=== PATIENT | male | born 1990 | race Caucasian/White ===

== ENCOUNTER 2016-08-04 23:00 | Emergency (ER) | payer SELFPAY ==
[~2016-08-04] VITALS: Ht 180.3 cm; Wt 68.0 kg
[~2016-08-04 23:00] MED LIST: CEPH-264 PO; IBUP600T16 PO; LEVE500T56 PO; TRAM-48 PO
[2016-08-04 23:15] VITALS: BP 114/69
[2016-08-04] MEDS ORDERED: AMOX500C PO (23:39)
[2016-08-04] MEDS ORDERED: TRAM-48 PO (23:39)
[2016-08-04] MEDS ORDERED: IBUP600T16 PO (23:39)
--- NOTE | 2016-08-04 23:39 | PHYS DOC ---
Past History Past Medical History: Seizure Past Surgical History: No Surgical History Alcohol Use: None Drug Use: None Adult General Chief Complaint Chief Complaint: DENTAL PROBLEM HPI HPI Patient is a 26-year-old male who presents here today complaining of couple days worth of right upper molar pain. Patient reports he does not have a dentist. Patient denies any other symptomatology. Patient has any fevers. Patient has any vomiting or diarrhea. Patient denies any recent trauma to his jaw. Patient is allergic to any medications. Patient does not have any history of hypertension diabetes liver longer kidney problems. Patient's physical exam is remarkable for tenderness to palpation to his right upper molars. There is no fluctuance. No trismus. No abscess formation. Assessment and plan #1 dental pain was likely secondary to wisdom teeth coming in. Patient is tenderness palpation over his right posterior molars. There is no fluctuance. There is no erythema around his gumline. There may be early infection. I discussed with the patient that he will need to follow-up with a dentist for definitive management of this pain. In the meantime we will transfer him amoxicillin, ibuprofen, and Ultram in order to assist him with his discomfort. Review of Systems Review of Systems Constitutional: Denies fever or chills [] Eyes: Denies change in visual acuity, redness, or eye pain [] All other review systems are negative except as documented in the history of present illness portion. Allergies Allergies Allergies Coded Allergies Type Severity Reaction Last Updated Verified No Known Drug Allergies 12/26/15 No Physical Exam Physical Exam Constitutional: Well developed, well nourished, no acute distress, non-toxic appearance. [] HENT: Normocephalic, atraumatic, bilateral external ears normal, oropharynx moist, no oral exudates, nose normal. [] Eyes: PERRLA, EOMI, conjunctiva normal, no discharge. [] Neck: Normal range of motion, no tenderness, supple, no stridor. [] Cardiovascular:Heart rate regular rhythm, no murmur [] Lungs & Thorax: Bilateral breath sounds clear to auscultation [] Abdomen: Bowel sounds normal, soft, no tenderness, no masses, no pulsatile masses. [] Skin: Warm, dry, no erythema, no rash. [] Back: No tenderness, no CVA tenderness. [] Extremities: No tenderness, no cyanosis, no clubbing, ROM intact, no edema. [] Neurologic: Alert and oriented X 3, normal motor function, normal sensory function, no focal deficits noted. [] Psychologic: Affect normal, judgement normal, mood normal. [] EKG EKG [] Radiology/Procedures Radiology/Procedures [] Course & Med Decision Making Course & Med Decision Making Pertinent Labs and Imaging studies reviewed. (See chart for details) [] Dragon Disclaimer Dragon Disclaimer This chart was dictated in whole or in part using Voice Recognition software in a busy, high-work load, and often noisy Emergency Department environment. It may contain unintended and wholly unrecognized errors or omissions. Departure Departure: Impression: Primary Impression: Toothache Disposition: HOME, SELF-CARE Condition: IMPROVED Referrals: JENY GUARDADO MD (PCP) Patient Instructions: Toothache-Brief Scripts Tramadol Hcl (ULTRAM) 50 Mg Tablet 50 MG PO PRN Q6HRS Y for PAIN, #20 TAB Prov: ISAAC BEARD MD 08/04/16 Ibuprofen (IBUPROFEN) 600 Mg Tablet 600 MG PO QID Y for PAIN, #20 Prov: ISAAC BEARD MD 08/04/16 Amoxicillin (AMOXICILLIN) 500 Mg Capsule 1 CAP PO TID, #30 CAP Prov: ISAAC BEARD MD 08/04/16 ISAAC BEARD MD August 04, 2016 23:39
[2016-08-05] MEDS ORDERED: AMOXICILLIN 500 MG CAPSULE PO ONE
[2016-08-05] MEDS ORDERED: traMADol 50 MG TABLET PO ONE
[2016-08-05] MEDS ORDERED: IBUPROFEN 600 MG TABLET. PO ONE
== END 2016-08-05 | disposition home or self-care (01) ==
LOC: ER 23:00
DX: K08.89 Other specified disorders of teeth and supporting structures (principal)
CPT/HCPCS: 99284

== ENCOUNTER 2016-08-14 23:54 | Emergency (ER) | payer SELFPAY ==
[~2016-08-14] VITALS: Ht 180.3 cm; Wt 68.0 kg
[~2016-08-14 23:54] MED LIST changes: +AMOX500C PO
[2016-08-14 23:55] VITALS: BP 127/74
--- NOTE | 2016-08-14 23:57 | ED.ADGEN ---
Past History Past Medical History: No Pertinent History Past Surgical History: No Surgical History Alcohol Use: None Drug Use: None Incision and Drainage Indication: Abscess on right thigh Procedure: The patient was positioned appropriately and the skin over the incision site was clean with alcohol swab. Local anesthesia was 2 mL of buffered lidocaine was injected. An incision was then made over the center of the wound and mall amount of material was expressed. The patients tetanus status was up-to-date. The patient tolerated the procedure well. Complications: No complications noted Adult General Chief Complaint Chief Complaint Insect bite HPI HPI Patient is a 26 year old male who presents with wound on his right thigh. He states his been there for 2 days. He states it's painful that's why came minute midnight to be seen and evaluated. He denies any fevers chills nausea vomiting. He states his last tetanus shot was in the last 5 years. He denies any hematuria or other bleeding disorders. Review of Systems Review of Systems Constitutional: Denies fever or chills [] Eyes: Denies change in visual acuity, redness, or eye pain [] HENT: Denies nasal congestion or sore throat [] Respiratory: Denies cough or shortness of breath [] Cardiovascular: No additional information not addressed in HPI [] GI: Denies abdominal pain, nausea, vomiting, bloody stools or diarrhea [] : Denies dysuria or hematuria [] Musculoskeletal: Denies back pain or joint pain [] Integument: Positive for lesion on the right thigh Neurologic: Denies headache, focal weakness or sensory changes [] Endocrine: Denies polyuria or polydipsia [] Current Medications Current Medications Current Medications Medications (Trade) Dose Ordered Sig/[facility] Start Time Stop Time Status Last Admin Dose Admin Lidocaine/Sodium Bicarbonate (Buffered Lidocaine 1%) 3 ml 1X ONCE 08/15/16 00:15 08/15/16 00:16 DC 08/15/16 00:15 3 ML Tramadol HCl (Ultram) 50 mg 1X ONCE 08/15/16 00:15 08/15/16 00:16 DC 08/15/16 00:15 50 MG Allergies Allergies Allergies Coded Allergies Type Severity Reaction Last Updated Verified No Known Drug Allergies 12/26/15 No Physical Exam Physical Exam Constitutional: Well developed, well nourished, no acute distress, non-toxic appearance. [] HENT: Normocephalic, atraumatic, bilateral external ears normal, oropharynx moist, no oral exudates, nose normal. [] Eyes: PERRLA, EOMI, conjunctiva normal, no discharge. [] Neck: Normal range of motion, no tenderness, supple, no stridor. [] Cardiovascular:Heart rate regular rhythm, no murmur [] Lungs & Thorax: Bilateral breath sounds clear to auscultation [] Abdomen: Bowel sounds normal, soft, no tenderness, no masses, no pulsatile masses. [] Skin: Warm, dry, 1 cm lesion with a scab in the center, mild tender to palpation , no fluctuance appreciated Back: No tenderness, no CVA tenderness. [] Extremities: No tenderness, no cyanosis, no clubbing, ROM intact, no edema. [] Neurologic: Alert and oriented X 3, normal motor function, normal sensory function, no focal deficits noted. [] Psychologic: Affect normal, judgement normal, mood normal. [] Current Patient Data Vital Signs Vital Signs Date Time Temp Pulse Resp B/P (MAP) Pulse Ox O2 Delivery O2 Flow Rate FiO2 08/15/16 00:15 20 99 Room Air EKG EKG [] Radiology/Procedures Radiology/Procedures [] Course & Med Decision Making Course & Med Decision Making Pertinent Labs and Imaging studies reviewed. (See chart for details) Area was numbed and a small amount of purulent discharge was drained out of it, it wound cultures were sent. Patient is being discharged with tramadol and Bactrim for 7 days. Return precautions given his agreeable plan and being discharged in stable condition this time. He is instructed return ER for worsening pain, fevers, swelling. Final Impression Final Impression Cellulitis of right thigh with small abscess Problems: Dragon Disclaimer Dragon Disclaimer This electronic medical record was generated, in whole or in part, using a voice recognition dictation system. JUSTUS OLIVEROS MD August 14, 2016 23:57
[2016-08-15] MEDS ORDERED: LIDOCAINE WITH 8.4% SOD BICARB 3 ML DISP.SYRIN. IJ ONE ×2 (00:05→00:15)
[2016-08-15] MEDS ORDERED: traMADol 50 MG TABLET PO ONE (00:15)
[2016-08-15] MEDS ORDERED: SULF1TAB24 PO (00:15)
[2016-08-15] MEDS ORDERED: TRAM50TA PO (00:17)
== END 2016-08-15 00:37 | disposition home or self-care (01) ==
LOC: ER 23:54
DX: L03.115 Cellulitis of right lower limb (principal)
CPT/HCPCS: 10060; 87070; 99283-25

== ENCOUNTER 2016-09-09 21:24 | Emergency (ER) | payer SELFPAY ==
[~2016-09-09] VITALS: Ht 180.3 cm; Wt 68.2 kg
[~2016-09-09 21:24] MED LIST changes: +SULF1TAB24 PO; +TRAM50TA PO
[2016-09-09 22:33] VITALS: BP 132/67
[2016-09-09] MEDS ORDERED: IBUP600T16 PO (22:50)
[2016-09-09] MEDS ORDERED: TRAM-48 PO (22:50)
[2016-09-09] MEDS ORDERED: SULF1TAB24 PO (22:50)
--- NOTE | 2016-09-09 22:50 | PHYS DOC ---
Past History Past Medical History: No Pertinent History Past Surgical History: No Surgical History Alcohol Use: None Drug Use: None Adult General Chief Complaint Chief Complaint: INSECT BITE HPI HPI Patient is a 26-year-old gentleman who presents with a tender infected insect bite to his flank area. He reports now for about 3 days. Patient has any fevers shakes chills. Nausea vomiting diarrhea. Patient's physical exam is significant for a 2 x 2 centimeter area of induration and tenderness and warmth to his right flank region. Assessment and plan Cellulitis to his right flank most likely secondary to an insect bite. Patient was given a prescription for Bactrim DS and Ultram. Review of Systems Review of Systems Constitutional: Denies fever or chills [] Eyes: Denies change in visual acuity, redness, or eye pain [] All other review systems are negative except as documented in the history of present illness portion. Allergies Allergies Allergies Coded Allergies Type Severity Reaction Last Updated Verified No Known Drug Allergies 12/26/15 No Physical Exam Physical Exam Constitutional: Well developed, well nourished, no acute distress, non-toxic appearance. [] HENT: Normocephalic, atraumatic, bilateral external ears normal, oropharynx moist, no oral exudates, nose normal. [] Eyes: PERRLA, EOMI, conjunctiva normal, no discharge. [] Neck: Normal range of motion, no tenderness, supple, no stridor. [] Cardiovascular:Heart rate regular rhythm, no murmur [] Lungs & Thorax: Bilateral breath sounds clear to auscultation [] Abdomen: Bowel sounds normal, soft, no tenderness, no masses, no pulsatile masses. [] Back: No tenderness, no CVA tenderness. [] Extremities: No tenderness, no cyanosis, no clubbing, ROM intact, no edema. [] Neurologic: Alert and oriented X 3, normal motor function, normal sensory function, no focal deficits noted. [] Psychologic: Affect normal, judgement normal, mood normal. [] Current Patient Data Vital Signs Vital Signs Date Time Temp Pulse Resp B/P (MAP) Pulse Ox O2 Delivery O2 Flow Rate FiO2 09/09/16 22:33 98.2 71 20 98 Room Air EKG EKG [] Radiology/Procedures Radiology/Procedures [] Course & Med Decision Making Course & Med Decision Making Pertinent Labs and Imaging studies reviewed. (See chart for details) [] Dragon Disclaimer Dragon Disclaimer This chart was dictated in whole or in part using Voice Recognition software in a busy, high-work load, and often noisy Emergency Department environment. It may contain unintended and wholly unrecognized errors or omissions. Departure Departure: Impression: Primary Impression: Cellulitis Disposition: HOME, SELF-CARE Condition: LEFT WITHOUT BEING SEEN Referrals: JENY GUARDADO MD (PCP) Patient Instructions: Cellulitis Scripts Tramadol Hcl (ULTRAM) 50 Mg Tablet 50 MG PO PRN Q6HRS Y for PAIN, #20 TAB Prov: ISAAC BEARD MD 09/09/16 Ibuprofen (IBUPROFEN) 600 Mg Tablet 600 MG PO QID Y for PAIN, #20 Prov: ISAAC BEARD MD 09/09/16 Sulfamethoxazole/Trimethoprim (BACTRIM DS TABLET) 1 Each Tablet 2 TAB PO BID, #40 TAB Prov: ISAAC BEARD MD 09/09/16 ISAAC BEARD MD Sep 09, 2016 22:50
[2016-09-09] MEDS ORDERED: traMADol 50 MG TABLET PO ONE (23:00)
[2016-09-09] MEDS ORDERED: SMZ/TMP 800/160MG TABLET. PO ONE (23:00)
[2016-09-09] MEDS ORDERED: IBUPROFEN 600 MG TABLET. PO ONE (23:00)
== END 2016-09-09 23:03 | disposition home or self-care (01) ==
LOC: ER 21:24
DX: L03.311 Cellulitis of abdominal wall (principal); S30.861A Insect bite (nonvenomous) of abdominal wall, initial encounter; W57.XXXA Bitten or stung by nonvenomous insect and other nonvenomous arthropods, initial encounter; Y93.89 Activity, other specified; Y99.8 Other external cause status; Y92.89 Other specified places as the place of occurrence of the external cause
CPT/HCPCS: 99284

== ENCOUNTER 2016-10-30 23:13 | Emergency (ER) | payer SELFPAY ==
[~2016-10-30] VITALS: Ht 180.3 cm; Wt 68.2 kg
[2016-10-30 23:35] VITALS: BP 125/78
--- NOTE | 2016-10-31 00:02 | ED.ADGEN ---
Past History Past Medical History: No Pertinent History Past Surgical History: No Surgical History Additional Smoking Information: PATIENT STATES THAT HE USES A VAPOR Alcohol Use: None Drug Use: None Adult General Chief Complaint Chief Complaint abscess HPI HPI Patient is a 26 y/o male who noticed a pimple on anterior abdomen 3 days ago and tried to pop it. now he has increased redness and pain in the area. he has had abscesses before. no fever. no n/v/d Review of Systems Review of Systems Constitutional: Denies fever or chills [] Eyes: Denies change in visual acuity, redness, or eye pain [] HENT: Denies nasal congestion or sore throat [] Respiratory: Denies cough or shortness of breath [] Cardiovascular: No additional information not addressed in HPI [] GI: Denies abdominal pain, nausea, vomiting, bloody stools or diarrhea [] : Denies dysuria or hematuria [] Musculoskeletal: Denies back pain or joint pain [] Integument: erythema on anterior abdomen Neurologic: Denies headache, focal weakness or sensory changes [] Endocrine: Denies polyuria or polydipsia [] Allergies Allergies Allergies Coded Allergies Type Severity Reaction Last Updated Verified No Known Drug Allergies 12/26/15 No Physical Exam Physical Exam Constitutional: Well developed, well nourished, no acute distress, non-toxic appearance. [] HENT: Normocephalic, atraumatic, bilateral external ears normal, oropharynx moist, no oral exudates, nose normal. [] Eyes: PERRLA, EOMI, conjunctiva normal, no discharge. [] Neck: Normal range of motion, no tenderness, supple, no stridor. [] Cardiovascular:Heart rate regular rhythm, no murmur [] Lungs & Thorax: Bilateral breath sounds clear to auscultation [] Abdomen: Bowel sounds normal, soft, no tenderness, no masses, no pulsatile masses. [] Skin: 3in x 3in area inferior to umbilicus. there is a punctate pustule in center. no palpable abscess Back: No tenderness, no CVA tenderness. [] Extremities: No tenderness, no cyanosis, no clubbing, ROM intact, no edema. [] Neurologic: Alert and oriented X 3, normal motor function, normal sensory function, no focal deficits noted. [] Psychologic: Affect normal, judgement normal, mood normal. [] Current Patient Data Vital Signs Vital Signs Date Time Temp Pulse Resp B/P (MAP) Pulse Ox O2 Delivery O2 Flow Rate FiO2 10/30/16 23:35 98.2 63 20 98 Room Air EKG EKG [] Radiology/Procedures Radiology/Procedures [] Course & Med Decision Making Course & Med Decision Making Pertinent Labs and Imaging studies reviewed. (See chart for details) will start bactrim and keflex for infection. T3 for pain and naprosyn[] Final Impression Final Impression cellulitis[] Problems: Dragon Disclaimer Dragon Disclaimer This electronic medical record was generated, in whole or in part, using a voice recognition dictation system. Departure Time of Disposition: 00:01 Disposition: 01 HOME, SELF-CARE Condition: GOOD Patient Instructions: Cellulitis, [id number] Additional Instructions: bactrim and keflex for infection. tylenol and codeine for pain. naprosyn for pain. do warm compresses for 10min every 3-4 hours. return if increased erythema , fever, vomiting, pain Prescriptions bactrim, keflex, t3, naprosyn KARI YEPEZ MD Oct 31, 2016 00:02
[2016-10-31] MEDS ORDERED: NAPR500T PO (00:05)
[2016-10-31] MEDS ORDERED: CEPH-264 PO (00:05)
[2016-10-31] MEDS ORDERED: SULF1TAB24 PO (00:05)
[2016-10-31] MEDS ORDERED: ACET-704 PO (00:05)
== END 2016-10-31 00:12 | disposition home or self-care (01) ==
LOC: ER 23:13
DX: L03.311 Cellulitis of abdominal wall (principal)
CPT/HCPCS: 99283

== ENCOUNTER 2017-05-10 22:47 | Emergency (ER) | payer BC ==
[~2017-05-10] VITALS: Ht 180.3 cm; Wt 68.2 kg
[~2017-05-10 22:47] MED LIST changes: +ACET-704 PO; +NAPR-683 PO
--- NOTE | 2017-05-10 22:51 | ED.ADGEN ---
Past History Past Medical History: No Pertinent History Past Surgical History: No Surgical History Alcohol Use: None Drug Use: None Adult General Chief Complaint Chief Complaint " .. I got this bug bite on my Rt. Leg...." or some kind of infection..." HPI HPI Patient is a 27 year old male who presents with above hx and complaints of abscess on Rt. calf. Pt. has 1 x2 cm abscess and surrounding cellulitis. No lymphatic striations. Distal neurovascular intact. Pt. patient does not remember his last tetanus shot. Patient has had cellulitis before. No history of immunosuppression. No history of travel. No specific ill contacts. Patient does not follow-up primary care. Review of Systems Review of Systems Constitutional: Denies fever or chills [] Eyes: Denies change in visual acuity, redness, or eye pain [] HENT: Denies nasal congestion or sore throat [] Respiratory: Denies cough or shortness of breath [] Cardiovascular: No additional information not addressed in HPI [] GI: Denies abdominal pain, nausea, vomiting, bloody stools or diarrhea [] : Denies dysuria or hematuria [] Musculoskeletal: Denies back pain or joint pain [] Integument: Denies rash or skin lesions [Except]area of abscess and cellulitis as per history of present illness Neurologic: Denies headache, focal weakness or sensory changes [] Endocrine: Denies polyuria or polydipsia [] All other systems were reviewed and found to be within normal limits, except as documented in this note. Family History Family History Non contributory Current Medications Current Medications Current Medications Medications (Trade) Dose Ordered Sig/[facility] Start Time Stop Time Status Last Admin Dose Admin Ceftriaxone Sodium (Rocephin Im) 1 gm 1X ONCE 05/10/17 23:30 05/10/17 23:31 DC 05/10/17 23:25 1 GM Ceftriaxone Sodium (Rocephin) 1 gm STK-MED ONCE 05/10/17 23:15 05/10/17 23:16 DC Diphtheria/ Tetanus/Acell Pertussis (Boostrix) 0.5 ml ONCE ONCE 05/10/17 23:30 05/10/17 23:31 DC 05/10/17 23:29 0.5 ML Morphine Sulfate (Morphine 10mg Syringe) 10 mg 1X ONCE 05/10/17 23:30 05/10/17 23:31 DC 05/10/17 23:26 10 MG Trimethoprim/ Sulfamethoxazole (Bactrim Ds) 1 tab 1X ONCE 05/11/17 09:00 05/11/17 09:00 DC See Nursing for home meds Allergies Allergies Allergies Coded Allergies Type Severity Reaction Last Updated Verified No Known Drug Allergies 05/11/17 No Physical Exam Physical Exam Constitutional: Well developed, well nourished, no acute distress, non-toxic appearance. [] HENT: Normocephalic, atraumatic, bilateral external ears normal, oropharynx moist, no oral exudates, nose normal. [] Eyes: PERRLA, EOMI, conjunctiva normal, no discharge. [] Neck: Normal range of motion, no tenderness, supple, no stridor. [] Cardiovascular:Heart rate regular rhythm, no murmur [] Lungs & Thorax: Bilateral breath sounds clear to auscultation [] Abdomen: Bowel sounds normal, soft, no tenderness, no masses, no pulsatile masses. [] Skin: Warm, dry, no erythema, no rash. [] Back: No tenderness, no CVA tenderness. [] Extremities: No tenderness, no cyanosis, no clubbing, ROM intact, no edema. Abscess Rt calf as per HPI. Neurologic: Alert and oriented X 3, normal motor function, normal sensory function, no focal deficits noted. [] Psychologic: Affect normal, judgement normal, mood normal. [] EKG EKG [] Radiology/Procedures Radiology/Procedures [] Course & Med Decision Making Course & Med Decision Making Pertinent Labs and Imaging studies reviewed. (See chart for details) Procedure note: Betadine to wound. Incision and drainage with 11 blade. Adequate drainage of abscess. Dressing applied. Rocephin 1 gm IM and Bactrim po. Tetanus given. Polysporin 4 x day to wound until healed. Bactrim DS twice a day x 7 days. Follow up with primary. Tylenol and Ibuprofen for pain. Must follow up. Return if any concerns. [] Final Impression Final Impression 1. Abscess[]/ Cellulitis Rt. calf Problems: Dragon Disclaimer Dragon Disclaimer This electronic medical record was generated, in whole or in part, using a voice recognition dictation system. LOBO NEIL MD May 10, 2017 22:51
[2017-05-10] MEDS ORDERED: cefTRIAXone SODIUM 1 GM VIAL IV ONE (23:15)
[2017-05-10] MEDS ORDERED: SULF1TAB24 PO (23:23)
[2017-05-10] MEDS ORDERED: DIPHTH,PERTUSS(ACELL),TET TOX 0.5 ML DISP.SYRIN. VAX IM ONE (23:30)
[2017-05-10] MEDS ORDERED: SMZ/TMP 800/160MG TABLET. PO ONE (23:30)
[2017-05-10] MEDS ORDERED: cefTRIAXone IM 1 GM VIAL IM ONE (23:30)
[2017-05-10] MEDS ORDERED: MORPHINE SULFATE 10 MG/ML SYRINGE. SQ ONE (23:30)
[2017-05-10 23:55] VITALS: BP 119/83
[2017-05-11] MEDS ORDERED: SMZ/TMP 800/160MG TABLET. PO ONE (09:00)
== END 2017-05-10 23:57 | disposition home or self-care (01) ==
LOC: ER 22:47
DX: L02.415 Cutaneous abscess of right lower limb (principal)
CPT/HCPCS: 10060; 90471; 90715; 96372; 99284; J0696; J2270